=== PATIENT | male | born 1960 | race Caucasian/White ===

== ENCOUNTER 2016-10-04 11:55 | Inpatient (IN) | payer MEDICARE, OTHER ==
[2016-10-04 12:10] VITALS: BMI 31.6
[2016-10-04] MEDS ORDERED: HYDROcodone/Acetaminophen 5/325 mg Tablet PO PRN (15:30)
[2016-10-04] MEDS ORDERED: Ondansetron ODT 4 MG TAB PO PRN (15:30)
[2016-10-04] MEDS ORDERED: Docusate 100 MG CAP PO PRN (15:33)
[2016-10-04] MEDS ORDERED: cefTRIAXone\\ROCEPHIN 2 GM VIAL IVPB SCH (15:45)
[2016-10-04] MEDS ORDERED: Sodium Chloride 0.9% 10 ML ONE (16:12)
[2016-10-04] MEDS: cefTRIAXone\\ROCEPHIN 2 GM in Sodium Chloride 0.9% 100 ML IVPB SCH (16:21)
[2016-10-04] MEDS: HYDROcodone/Acetaminophen 10/325 mg Tablet PO PRN (16:26)
[2016-10-04] MEDS: Clindamycin 150 MG CAP PO SCH ×2 (17:55→23:24)
[2016-10-04] MEDS ORDERED: Dextrose 5% in Water 1,000 ML IV PRN (21:03)
[2016-10-04] MEDS ORDERED: HumaLOG 300 UNITS/3 ML VIAL SC PRN ×2 (21:03)
[2016-10-04] MEDS ORDERED: Dextrose 50% Abboject 50 ML SYRINGE IVP PRN (21:03)
[2016-10-04] MEDS: metroNIDAZOLE 500 MG TAB PO SCH (21:15)
[2016-10-04] MEDS: Mirtazapine 15 MG TAB PO SCH (21:15)
[2016-10-05] MEDS: Clindamycin 150 MG CAP PO SCH ×4 (05:45→23:14)
[2016-10-05 06:04] LABS: Anion Gap 14 mmol/L (10-20); BUN (Urea Nitrogen) 12 mg/dL (8.4-25.7); Calc. Creatinine Clearance 156 mL/min (70-130); Calcium 8.9 mg/dL (7.8-10.44); Carbon Dioxide 19 mmol/L (22-29); Chloride 109 mmol/L (98-107); Estimated GFR-MDRD Greater than 90; Glucose 128 mg/dL (70-105); Potassium 4.1 mmol/L (3.5-5.1); Sodium 138 mmol/L (136-145)
[2016-10-05 06:28] LABS: Hemoglobin 12.9 g/dL (14.0-18.0); Mean Corpuscular Volume 93.9 fl (80.0-94.0); Mean Platelet Volume 8.6 fL (7.4-10.4); Platelet Count 249 thou/uL (130-400); RBC Distribution Width 12.9 % (11.5-14.5); Red Blood Cell (RBC) Count 4.31 mill/uL (4.70-6.10); White Blood Cell (WBC) Count 9.6 thou/uL (4.8-10.8)
[2016-10-05 06:29] LABS: Eosinophils 2 % (0-10); Lymphocytes 30 % (21-51); MDiff Complete? YES; Monocytes 11 % (0-10); Neutrophil 57 % (42-75); PLT Morphology Comment Appears Adequate
[2016-10-05] MEDS: Saccharomyces boulardii 250 MG CAP PO SCH (09:41)
[2016-10-05] MEDS: Tamsulosin HCl 0.4 MG CAP PO SCH (09:42)
[2016-10-05] MEDS: Fluconazole 100 MG TAB PO SCH (09:42)
[2016-10-05] MEDS: metroNIDAZOLE 500 MG TAB PO SCH ×3 (09:42→21:03)
[2016-10-05] MEDS: FLUoxetine HCl 20 MG CAP PO SCH (09:52)
[2016-10-05] MEDS: cefTRIAXone\\ROCEPHIN 2 GM in Sodium Chloride 0.9% 100 ML IVPB SCH (15:53)
[2016-10-05] MEDS: HYDROcodone/Acetaminophen 10/325 mg Tablet PO PRN ×2 (16:51→21:03)
[2016-10-05] MEDS: Mirtazapine 15 MG TAB PO SCH (21:02)
[2016-10-06] MEDS: Clindamycin 150 MG CAP PO SCH ×4 (05:39→23:54)
[2016-10-06] MEDS: Saccharomyces boulardii 250 MG CAP PO SCH (08:14)
[2016-10-06] MEDS: Fluconazole 100 MG TAB PO SCH (08:14)
[2016-10-06] MEDS: Tamsulosin HCl 0.4 MG CAP PO SCH (08:14)
[2016-10-06] MEDS: FLUoxetine HCl 20 MG CAP PO SCH (08:14)
[2016-10-06] MEDS: metroNIDAZOLE 500 MG TAB PO SCH ×3 (08:15→20:38)
[2016-10-06] MEDS: HYDROcodone/Acetaminophen 10/325 mg Tablet PO PRN ×2 (11:28→17:52)
[2016-10-06] MEDS: cefTRIAXone\\ROCEPHIN 2 GM in Sodium Chloride 0.9% 100 ML IVPB SCH (17:07)
[2016-10-06] MEDS: lamoTRIgine 25 MG TAB PO SCH (20:38)
[2016-10-06] MEDS: Mirtazapine 15 MG TAB PO SCH (20:38)
[2016-10-07] MEDS: Clindamycin 150 MG CAP PO SCH ×4 (05:46→23:39)
[2016-10-07] MEDS: HYDROcodone/Acetaminophen 10/325 mg Tablet PO PRN ×4 (06:39→21:36)
[2016-10-07] MEDS: Tamsulosin HCl 0.4 MG CAP PO SCH (09:30)
[2016-10-07] MEDS: lamoTRIgine 25 MG TAB PO SCH ×2 (09:30→20:12)
[2016-10-07] MEDS: Fluconazole 100 MG TAB PO SCH (09:30)
[2016-10-07] MEDS: metroNIDAZOLE 500 MG TAB PO SCH ×3 (09:30→20:12)
[2016-10-07] MEDS: Nicotine 21 MG PATCH TD SCH (09:30)
[2016-10-07] MEDS: FLUoxetine HCl 20 MG CAP PO SCH (09:30)
[2016-10-07] MEDS: Saccharomyces boulardii 250 MG CAP PO SCH (09:30)
[2016-10-07] MEDS: cefTRIAXone\\ROCEPHIN 2 GM in Sodium Chloride 0.9% 100 ML IVPB SCH (15:45)
[2016-10-07] MEDS: Mirtazapine 15 MG TAB PO SCH (20:12)
[2016-10-08] MEDS: Clindamycin 150 MG CAP PO SCH ×3 (05:37→17:00)
[2016-10-08] MEDS: HYDROcodone/Acetaminophen 10/325 mg Tablet PO PRN ×3 (08:05→21:20)
[2016-10-08] MEDS: lamoTRIgine 25 MG TAB PO SCH ×2 (08:47→21:18)
[2016-10-08] MEDS: metroNIDAZOLE 500 MG TAB PO SCH ×3 (08:47→21:18)
[2016-10-08] MEDS: Nicotine 21 MG PATCH TD SCH (08:47)
[2016-10-08] MEDS: FLUoxetine HCl 20 MG CAP PO SCH (08:47)
[2016-10-08] MEDS: Saccharomyces boulardii 250 MG CAP PO SCH (08:48)
[2016-10-08] MEDS: Tamsulosin HCl 0.4 MG CAP PO SCH (08:55)
[2016-10-08] MEDS: Fluconazole 100 MG TAB PO SCH (09:51)
[2016-10-08 11:48] LABS: ALT (SGPT) 24 U/L (8-55); AST (SGOT) 17 U/L (5-34); Alkaline Phosphatase 126 U/L (40-150); Anion Gap 15 mmol/L (10-20); BUN (Urea Nitrogen) 16 mg/dL (8.4-25.7); Bilirubin, Total 0.3 mg/dL (0.2-1.2); Calc. Creatinine Clearance 153 mL/min (70-130); Calcium 9.8 mg/dL (7.8-10.44); Carbon Dioxide 23 mmol/L (22-29); Chloride 103 mmol/L (98-107); Estimated GFR-MDRD Greater than 90; Globulin 2.9 g/dL (2.4-3.5); Glucose 101 mg/dL (70-105); Potassium 4.4 mmol/L (3.5-5.1); Protein, Total 6.9 g/dL (6.0-8.3); Sodium 137 mmol/L (136-145)
[2016-10-08 11:49] LABS: #Basophils 0.3 thou/uL (0.0-0.2); #Eosinphils 0.6 thou/uL (0.0-0.7); #Lymphocytes 2.8 thou/uL (1.20-3.40); #Monocytes 1.4 thou/uL (0.11-0.59); #Neutrophils 8.3 thou/uL (1.40-6.50); %Basophils 1.9 % (0.0-1.0); %Eosinophils 4.6 % (0.0-10.0); %Lymphocytes 20.8 % (21.0-51.0); %Monocytes 10.5 % (0.0-10.0); %Neutrophils 62.2 % (42.0-75.0); Hemoglobin 14.6 g/dL (14.0-18.0); Mean Corpuscular HGB CONC 32.9 g/dL (32.0-36.0); Mean Corpuscular Hemoglobin 29.8 pg (27.0-31.0); Mean Corpuscular Volume 90.7 fl (80.0-94.0); Mean Platelet Volume 8.6 fL (7.4-10.4); Platelet Count 320 thou/uL (130-400); RBC Distribution Width 12.2 % (11.5-14.5); Red Blood Cell (RBC) Count 4.89 mill/uL (4.70-6.10); White Blood Cell (WBC) Count 13.4 thou/uL (4.8-10.8)
[2016-10-08] MEDS: cefTRIAXone\\ROCEPHIN 2 GM in Sodium Chloride 0.9% 100 ML IVPB SCH (15:54)
[2016-10-08] MEDS: Sodium Chloride 0.9% 20 ML ONE (15:55)
[2016-10-08] MEDS: Mirtazapine 15 MG TAB PO SCH (21:18)
[2016-10-09] MEDS: Clindamycin 150 MG CAP PO SCH ×5 (00:45→22:58)
[2016-10-09] MEDS: FLUoxetine HCl 20 MG CAP PO SCH (08:53)
[2016-10-09] MEDS: Fluconazole 100 MG TAB PO SCH (08:54)
[2016-10-09] MEDS: lamoTRIgine 25 MG TAB PO SCH ×2 (08:55→20:00)
[2016-10-09] MEDS: metroNIDAZOLE 500 MG TAB PO SCH ×3 (08:55→19:59)
[2016-10-09] MEDS: Saccharomyces boulardii 250 MG CAP PO SCH (08:56)
[2016-10-09] MEDS: Nicotine 21 MG PATCH TD SCH (08:56)
[2016-10-09] MEDS: Tamsulosin HCl 0.4 MG CAP PO SCH (08:56)
[2016-10-09] MEDS: Acetaminophen/Codeine 30-300mg Tablet PO PRN (08:56)
[2016-10-09] MEDS: Sodium Chloride 0.9% 20 ML ONE (16:18)
[2016-10-09] MEDS: cefTRIAXone\\ROCEPHIN 2 GM in Sodium Chloride 0.9% 100 ML IVPB SCH (16:18)
[2016-10-09] MEDS: HYDROcodone/Acetaminophen 10/325 mg Tablet PO PRN (19:59)
[2016-10-09] MEDS: Mirtazapine 15 MG TAB PO SCH (19:59)
[2016-10-10] MEDS: Clindamycin 150 MG CAP PO SCH ×4 (05:10→23:05)
[2016-10-10] MEDS: lamoTRIgine 25 MG TAB PO SCH ×2 (08:16→20:09)
[2016-10-10] MEDS: Fluconazole 100 MG TAB PO SCH (08:16)
[2016-10-10] MEDS: FLUoxetine HCl 20 MG CAP PO SCH (08:16)
[2016-10-10] MEDS: Saccharomyces boulardii 250 MG CAP PO SCH (08:16)
[2016-10-10] MEDS: metroNIDAZOLE 500 MG TAB PO SCH ×3 (08:16→20:09)
[2016-10-10] MEDS: Tamsulosin HCl 0.4 MG CAP PO SCH (08:16)
[2016-10-10] MEDS: Nicotine 21 MG PATCH TD SCH (08:17)
[2016-10-10] MEDS: HYDROcodone/Acetaminophen 10/325 mg Tablet PO PRN ×2 (08:19→18:05)
[2016-10-10 11:42] LABS: #Basophils 0.2 thou/uL (0.0-0.2); #Eosinphils 0.5 thou/uL (0.0-0.7); #Lymphocytes 2.5 thou/uL (1.20-3.40); #Monocytes 0.8 thou/uL (0.11-0.59); %Basophils 1.7 % (0.0-1.0); %Eosinophils 4.3 % (0.0-10.0); %Lymphocytes 20.9 % (21.0-51.0); %Monocytes 6.3 % (0.0-10.0); %Neutrophils 66.8 % (42.0-75.0); Hemoglobin 13.5 g/dL (14.0-18.0); Mean Corpuscular HGB CONC 32.4 g/dL (32.0-36.0); Mean Corpuscular Hemoglobin 29.3 pg (27.0-31.0); Mean Corpuscular Volume 90.5 fl (80.0-94.0); Mean Platelet Volume 8.2 fL (7.4-10.4); Platelet Count 264 thou/uL (130-400); RBC Distribution Width 12.1 % (11.5-14.5); Red Blood Cell (RBC) Count 4.61 mill/uL (4.70-6.10); White Blood Cell (WBC) Count 11.9 thou/uL (4.8-10.8)
[2016-10-10] MEDS: cefTRIAXone\\ROCEPHIN 2 GM in Sodium Chloride 0.9% 100 ML IVPB SCH (15:25)
[2016-10-10] MEDS: Mirtazapine 15 MG TAB PO SCH (20:10)
[2016-10-11] MEDS: Clindamycin 150 MG CAP PO SCH ×4 (06:05→23:02)
[2016-10-11] MEDS: Fluconazole 100 MG TAB PO SCH (07:53)
[2016-10-11] MEDS: metroNIDAZOLE 500 MG TAB PO SCH ×3 (07:54→20:21)
[2016-10-11] MEDS: FLUoxetine HCl 20 MG CAP PO SCH (07:54)
[2016-10-11] MEDS: Tamsulosin HCl 0.4 MG CAP PO SCH (07:54)
[2016-10-11] MEDS: Saccharomyces boulardii 250 MG CAP PO SCH (07:54)
[2016-10-11] MEDS: lamoTRIgine 25 MG TAB PO SCH ×2 (07:55→20:21)
[2016-10-11] MEDS: Nicotine 21 MG PATCH TD SCH (07:55)
[2016-10-11] MEDS: HYDROcodone/Acetaminophen 10/325 mg Tablet PO PRN ×2 (08:00→20:14)
[2016-10-11] MEDS ORDERED: Sodium Chloride 0.9% 20 ML ONE (14:09)
[2016-10-11] MEDS: cefTRIAXone\\ROCEPHIN 2 GM in Sodium Chloride 0.9% 100 ML IVPB SCH (15:00)
[2016-10-11] MEDS: Mirtazapine 15 MG TAB PO SCH (20:21)
[2016-10-12] MEDS: HYDROcodone/Acetaminophen 10/325 mg Tablet PO PRN ×3 (05:23→19:54)
[2016-10-12] MEDS: Clindamycin 150 MG CAP PO SCH ×3 (05:23→17:23)
[2016-10-12] MEDS: lamoTRIgine 25 MG TAB PO SCH ×2 (08:03→20:51)
[2016-10-12] MEDS: Saccharomyces boulardii 250 MG CAP PO SCH (08:03)
[2016-10-12] MEDS: Fluconazole 100 MG TAB PO SCH (08:03)
[2016-10-12] MEDS: metroNIDAZOLE 500 MG TAB PO SCH ×3 (08:03→20:50)
[2016-10-12] MEDS: Tamsulosin HCl 0.4 MG CAP PO SCH (08:03)
[2016-10-12] MEDS: FLUoxetine HCl 20 MG CAP PO SCH (08:04)
[2016-10-12] MEDS: Nicotine 21 MG PATCH TD SCH (08:04)
[2016-10-12] MEDS ORDERED: Sodium Chloride 0.9% 20 ML ONE (15:18)
[2016-10-12] MEDS: cefTRIAXone\\ROCEPHIN 2 GM in Sodium Chloride 0.9% 100 ML IVPB SCH (15:20)
[2016-10-12] MEDS: Mirtazapine 15 MG TAB PO SCH (20:51)
[2016-10-13] MEDS: Clindamycin 150 MG CAP PO SCH ×5 (00:05→23:43)
[2016-10-13] MEDS: Acetaminophen/Codeine 30-300mg Tablet PO PRN (07:18)
[2016-10-13] MEDS: FLUoxetine HCl 20 MG CAP PO SCH (09:27)
[2016-10-13] MEDS: Saccharomyces boulardii 250 MG CAP PO SCH (09:28)
[2016-10-13] MEDS: Tamsulosin HCl 0.4 MG CAP PO SCH (09:28)
[2016-10-13] MEDS: Fluconazole 100 MG TAB PO SCH (09:28)
[2016-10-13] MEDS: metroNIDAZOLE 500 MG TAB PO SCH ×3 (09:28→21:02)
[2016-10-13] MEDS: lamoTRIgine 25 MG TAB PO SCH ×2 (09:28→21:02)
[2016-10-13] MEDS: Nicotine 21 MG PATCH TD SCH (09:29)
[2016-10-13] MEDS: HYDROcodone/Acetaminophen 10/325 mg Tablet PO PRN ×2 (14:13→21:02)
[2016-10-13] MEDS: Sodium Chloride 0.9% 20 ML ONE (16:00)
[2016-10-13] MEDS: cefTRIAXone\\ROCEPHIN 2 GM in Sodium Chloride 0.9% 100 ML IVPB SCH (16:00)
[2016-10-13] MEDS: Mirtazapine 15 MG TAB PO SCH (21:02)
[2016-10-14] MEDS: Clindamycin 150 MG CAP PO SCH ×4 (06:29→23:40)
[2016-10-14] MEDS: Fluconazole 100 MG TAB PO SCH (08:44)
[2016-10-14] MEDS: lamoTRIgine 25 MG TAB PO SCH ×2 (08:45→20:27)
[2016-10-14] MEDS: Saccharomyces boulardii 250 MG CAP PO SCH (08:45)
[2016-10-14] MEDS: FLUoxetine HCl 20 MG CAP PO SCH (08:45)
[2016-10-14] MEDS: Tamsulosin HCl 0.4 MG CAP PO SCH (08:45)
[2016-10-14] MEDS: Nicotine 21 MG PATCH TD SCH (08:49)
[2016-10-14] MEDS: metroNIDAZOLE 500 MG TAB PO SCH ×3 (08:53→20:28)
[2016-10-14] MEDS ORDERED: Sodium Chloride 0.9% 20 ML ONE (14:04)
[2016-10-14] MEDS: HYDROcodone/Acetaminophen 10/325 mg Tablet PO PRN ×2 (14:07→20:28)
[2016-10-14] MEDS: cefTRIAXone\\ROCEPHIN 2 GM in Sodium Chloride 0.9% 100 ML IVPB SCH (16:13)
[2016-10-14] MEDS: Sodium Chloride 0.9% 20 ML ONE (16:18)
[2016-10-14] MEDS: Mirtazapine 15 MG TAB PO SCH (20:27)
[2016-10-15] MEDS: Clindamycin 150 MG CAP PO SCH ×4 (05:38→23:02)
[2016-10-15] MEDS: HYDROcodone/Acetaminophen 10/325 mg Tablet PO PRN ×4 (06:14→23:02)
[2016-10-15] MEDS: Nicotine 21 MG PATCH TD SCH (09:24)
[2016-10-15] MEDS: FLUoxetine HCl 20 MG CAP PO SCH (09:25)
[2016-10-15] MEDS: Tamsulosin HCl 0.4 MG CAP PO SCH (09:25)
[2016-10-15] MEDS: Saccharomyces boulardii 250 MG CAP PO SCH (09:25)
[2016-10-15] MEDS: Fluconazole 100 MG TAB PO SCH (09:27)
[2016-10-15] MEDS: metroNIDAZOLE 500 MG TAB PO SCH ×3 (09:29→21:31)
[2016-10-15] MEDS: lamoTRIgine 25 MG TAB PO SCH ×2 (09:29→21:31)
[2016-10-15] MEDS: cefTRIAXone\\ROCEPHIN 2 GM in Sodium Chloride 0.9% 100 ML IVPB SCH (16:16)
[2016-10-15] MEDS: Mirtazapine 15 MG TAB PO SCH (21:31)
[2016-10-16] MEDS: Clindamycin 150 MG CAP PO SCH ×4 (05:26→22:42)
[2016-10-16] MEDS: Fluconazole 100 MG TAB PO SCH (08:19)
[2016-10-16] MEDS: lamoTRIgine 25 MG TAB PO SCH ×2 (08:20→21:15)
[2016-10-16] MEDS: FLUoxetine HCl 20 MG CAP PO SCH (08:20)
[2016-10-16] MEDS: Saccharomyces boulardii 250 MG CAP PO SCH (08:20)
[2016-10-16] MEDS: Tamsulosin HCl 0.4 MG CAP PO SCH (08:20)
[2016-10-16] MEDS: metroNIDAZOLE 500 MG TAB PO SCH ×3 (08:20→21:15)
[2016-10-16] MEDS: Nicotine 21 MG PATCH TD SCH (08:23)
[2016-10-16] MEDS: HYDROcodone/Acetaminophen 10/325 mg Tablet PO PRN ×3 (11:07→22:42)
[2016-10-16] MEDS: cefTRIAXone\\ROCEPHIN 2 GM in Sodium Chloride 0.9% 100 ML IVPB SCH (15:37)
[2016-10-16] MEDS ORDERED: Sodium Chloride 0.9% 10 ML ONE (16:17)
[2016-10-16] MEDS: Mirtazapine 15 MG TAB PO SCH (21:15)
[2016-10-17] MEDS: FLUoxetine HCl 20 MG CAP PO SCH (09:30)
[2016-10-17] MEDS: Tamsulosin HCl 0.4 MG CAP PO SCH (09:30)
[2016-10-17] MEDS: HYDROcodone/Acetaminophen 10/325 mg Tablet PO PRN ×2 (09:30→20:21)
[2016-10-17] MEDS: metroNIDAZOLE 500 MG TAB PO SCH ×3 (09:30→20:20)
[2016-10-17] MEDS: Saccharomyces boulardii 250 MG CAP PO SCH (09:30)
[2016-10-17] MEDS: lamoTRIgine 25 MG TAB PO SCH ×2 (09:30→20:20)
[2016-10-17] MEDS: Fluconazole 100 MG TAB PO SCH (09:30)
[2016-10-17] MEDS: Nicotine 21 MG PATCH TD SCH (10:57)
[2016-10-17] MEDS: Clindamycin 150 MG CAP PO SCH ×3 (13:51→23:54)
[2016-10-17] MEDS: cefTRIAXone\\ROCEPHIN 2 GM in Sodium Chloride 0.9% 100 ML IVPB SCH (15:36)
[2016-10-17] MEDS: Mirtazapine 15 MG TAB PO SCH (20:20)
[2016-10-18] MEDS: Clindamycin 150 MG CAP PO SCH ×3 (05:39→17:05)
[2016-10-18] MEDS: HYDROcodone/Acetaminophen 10/325 mg Tablet PO PRN ×2 (07:40→15:35)
[2016-10-18] MEDS: FLUoxetine HCl 20 MG CAP PO SCH (08:54)
[2016-10-18] MEDS: Fluconazole 100 MG TAB PO SCH (08:54)
[2016-10-18] MEDS: lamoTRIgine 25 MG TAB PO SCH ×2 (08:55→20:59)
[2016-10-18] MEDS: Nicotine 21 MG PATCH TD SCH (08:55)
[2016-10-18] MEDS: metroNIDAZOLE 500 MG TAB PO SCH ×3 (08:55→20:59)
[2016-10-18] MEDS: Saccharomyces boulardii 250 MG CAP PO SCH (08:55)
[2016-10-18] MEDS: Tamsulosin HCl 0.4 MG CAP PO SCH (08:56)
[2016-10-18 11:49] LABS: #Basophils 0.2 thou/uL (0.0-0.2); #Eosinphils 0.4 thou/uL (0.0-0.7); #Lymphocytes 1.9 thou/uL (1.20-3.40); #Monocytes 0.7 thou/uL (0.11-0.59); #Neutrophils 6.9 thou/uL (1.40-6.50); %Lymphocytes 18.8 % (21.0-51.0); %Monocytes 6.6 % (0.0-10.0); %Neutrophils 68.6 % (42.0-75.0); Hemoglobin 13.1 g/dL (14.0-18.0); Mean Corpuscular HGB CONC 33.2 g/dL (32.0-36.0); Mean Corpuscular Volume 90.2 fl (80.0-94.0); Mean Platelet Volume 8.9 fL (7.4-10.4); Platelet Count 249 thou/uL (130-400); RBC Distribution Width 12.4 % (11.5-14.5); Red Blood Cell (RBC) Count 4.37 mill/uL (4.70-6.10); White Blood Cell (WBC) Count 10.1 thou/uL (4.8-10.8)
[2016-10-18 12:04] LABS: ALT (SGPT) 20 U/L (8-55); AST (SGOT) 20 U/L (5-34); Albumin 3.6 g/dL (3.5-5.0); Alkaline Phosphatase 99 U/L (40-150); Anion Gap 13 mmol/L (10-20); BUN (Urea Nitrogen) 14 mg/dL (8.4-25.7); Bilirubin, Total 0.2 mg/dL (0.2-1.2); CRP (Inflammatory) 1.62 mg/dL (= or < 0.5); Calc. Creatinine Clearance 162 mL/min (70-130); Calcium 9.1 mg/dL (7.8-10.44); Carbon Dioxide 24 mmol/L (22-29); Chloride 106 mmol/L (98-107); Estimated GFR-MDRD Greater than 90; Globulin 2.4 g/dL (2.4-3.5); Glucose 122 mg/dL (70-105); Potassium 4.1 mmol/L (3.5-5.1); Sodium 139 mmol/L (136-145)
[2016-10-18] MEDS ORDERED: Sodium Chloride 0.9% 10 ML ONE (15:13)
[2016-10-18] MEDS: cefTRIAXone\\ROCEPHIN 2 GM in Sodium Chloride 0.9% 100 ML IVPB SCH (15:36)
[2016-10-18] MEDS: Mirtazapine 15 MG TAB PO SCH (20:59)
[2016-10-19] MEDS: Clindamycin 150 MG CAP PO SCH ×5 (00:01→16:59)
[2016-10-19] MEDS: FLUoxetine HCl 20 MG CAP PO SCH (08:46)
[2016-10-19] MEDS: Saccharomyces boulardii 250 MG CAP PO SCH (08:46)
[2016-10-19] MEDS: Tamsulosin HCl 0.4 MG CAP PO SCH (08:46)
[2016-10-19] MEDS: lamoTRIgine 25 MG TAB PO SCH ×2 (08:46→21:15)
[2016-10-19] MEDS: metroNIDAZOLE 500 MG TAB PO SCH ×3 (08:46→21:16)
[2016-10-19] MEDS: Fluconazole 100 MG TAB PO SCH (08:47)
[2016-10-19] MEDS: Nicotine 21 MG PATCH TD SCH (08:49)
[2016-10-19] MEDS: cefTRIAXone\\ROCEPHIN 2 GM in Sodium Chloride 0.9% 100 ML IVPB SCH (15:42)
[2016-10-19] MEDS: Mirtazapine 15 MG TAB PO SCH (21:15)
[2016-10-19] MEDS: HYDROcodone/Acetaminophen 10/325 mg Tablet PO PRN (21:16)
[2016-10-20] MEDS: Clindamycin 150 MG CAP PO SCH ×5 (00:21→23:18)
[2016-10-20] MEDS: Nicotine 21 MG PATCH TD SCH (08:48)
[2016-10-20] MEDS: metroNIDAZOLE 500 MG TAB PO SCH ×3 (08:54→21:27)
[2016-10-20] MEDS: Saccharomyces boulardii 250 MG CAP PO SCH (08:54)
[2016-10-20] MEDS: lamoTRIgine 25 MG TAB PO SCH ×2 (08:54→21:27)
[2016-10-20] MEDS: Fluconazole 100 MG TAB PO SCH (08:55)
[2016-10-20] MEDS: Tamsulosin HCl 0.4 MG CAP PO SCH (08:57)
[2016-10-20] MEDS: FLUoxetine HCl 20 MG CAP PO SCH (08:58)
[2016-10-20] MEDS: cefTRIAXone\\ROCEPHIN 2 GM in Sodium Chloride 0.9% 100 ML IVPB SCH (15:21)
[2016-10-20] MEDS: HYDROcodone/Acetaminophen 10/325 mg Tablet PO PRN (18:22)
[2016-10-20] MEDS: Mirtazapine 15 MG TAB PO SCH (21:27)
[2016-10-21] MEDS: Clindamycin 150 MG CAP PO SCH ×3 (05:36→17:28)
[2016-10-21] MEDS: metroNIDAZOLE 500 MG TAB PO SCH ×3 (09:05→21:26)
[2016-10-21] MEDS: lamoTRIgine 25 MG TAB PO SCH ×2 (09:05→21:26)
[2016-10-21] MEDS: Fluconazole 100 MG TAB PO SCH (09:06)
[2016-10-21] MEDS: FLUoxetine HCl 20 MG CAP PO SCH (09:06)
[2016-10-21] MEDS: Tamsulosin HCl 0.4 MG CAP PO SCH (09:06)
[2016-10-21] MEDS: Saccharomyces boulardii 250 MG CAP PO SCH (09:06)
[2016-10-21] MEDS: Nicotine 21 MG PATCH TD SCH (09:07)
[2016-10-21] MEDS: HYDROcodone/Acetaminophen 10/325 mg Tablet PO PRN ×2 (11:57→21:26)
[2016-10-21] MEDS: cefTRIAXone\\ROCEPHIN 2 GM in Sodium Chloride 0.9% 100 ML IVPB SCH (15:42)
[2016-10-21] MEDS: Mirtazapine 15 MG TAB PO SCH (21:26)
[2016-10-22] MEDS: Clindamycin 150 MG CAP PO SCH ×4 (00:11→17:05)
[2016-10-22 08:42] VITALS: BP 148/65; TEMP 95.9
[2016-10-22] MEDS: Fluconazole 100 MG TAB PO SCH (08:53)
[2016-10-22] MEDS: metroNIDAZOLE 500 MG TAB PO SCH ×2 (08:54→15:09)
[2016-10-22] MEDS: FLUoxetine HCl 20 MG CAP PO SCH (08:54)
[2016-10-22] MEDS: lamoTRIgine 25 MG TAB PO SCH (08:54)
[2016-10-22] MEDS: Saccharomyces boulardii 250 MG CAP PO SCH (08:55)
[2016-10-22] MEDS: Tamsulosin HCl 0.4 MG CAP PO SCH (08:55)
[2016-10-22] MEDS: Nicotine 21 MG PATCH TD SCH (08:55)
[2016-10-22] MEDS: HYDROcodone/Acetaminophen 10/325 mg Tablet PO PRN (11:54)
[2016-10-22] MEDS: cefTRIAXone\\ROCEPHIN 2 GM in Sodium Chloride 0.9% 100 ML IVPB SCH (15:09)
--- NOTE | 2016-10-24 07:22 | PQF ---
EVELIA ESPINOZA DARRYL [id number] [facility] ACUTE-[id number] CLINICAL DOCUMENTATION CLARIFICATION FORM: POST DISCHARGE PLEASE FAX RESPONSE BACK TO [phone] Addendum to original discharge summary date: ____ Late entry note date: 30 Oct 2016 DATE: 10/24/2016 ATTN: DR. MARVIN The following CLINICAL INDICATORS - SIGNS / SYMPTOMS are present in the medical record: Hand written operative report on 10/17/2016 states wound debridement and wound closure RISKS: Tenosynovitis of rt wrist Noncompliance to wound care Nicotine abuse TREATMENTS: Antibiotics Wound care with dressing changes Please provide a response below if a more specific term indicating a diagnosis and/or acuity level for this condition can be identified. Please exercise your independent, professional judgment in responding to the clarification form. Clinical indicators are provided at the top of this form for your review. . For continuity of documentation, please document condition throughout progress notes and discharge summary. Thank you. [ x] Excisional Debridement: (Definition) Excisional debridement is the surgical removal or cutting away of devitalized tissue, necrosis, or slough. Excisional debridement can be performed in the operating room, emergency room, or at the patient's bedside. ([facility], Fourth 1987) [ ] Excised [ ] Removed [ ] Cut away [ ] Other: Depth / layer: (deepest layer of debridement): [ ] Skin/SubQ[ ] Fascia [ x] Muscle [ ] Bone (please specify): / x x Instruments used: [x ] Scissors [ x ] Scalpel[ ] Curette[ x] Tweezers/ forceps [ ] Soft tissue clipper[ ] Other: x [ ] Non-excisional Debridement: (Removal by flushing, brushing, or washing) ( Definition) Nonexcisional debridement is the non-operative brushing, irrigating , scrubbing, or washing of devitalized tissue, necrosis, or slough. Nonexcisional debridement includes snipping of tissue followed by Lopez tank therapy. Nonexcisional debridement may be performed by a nurse, therapist, or physician. ([facility], Fourth 1987) [ ] Incision and Drainage only (No Debridement): Depth:[ ] Skin & Sub Q only[ ] Into soft tissue [ ] Escharectomy [ ] Does not apply to this patient [ ] Unable to determine [ ] Other diagnosis: daniele marvin 30 October 2016 Physician/Provider Signature Date Time (This form is maintained as a part of the permanent medical record) 2014 [employer]. All Rights Reserved [email or web address]
== END 2016-10-22 17:45 | disposition home or self-care (01) | DRG 513 ==
LOC: NAV ACUTE 11:55 → UNDOADMIN 11:55
PROVIDERS: ADMIT Internal Medicine; ATTEND Internal Medicine
PROC: 0JBJ0ZZ Excision of Right Hand Subcutaneous Tissue and Fascia, Open Approach (ICD-10-PCS; principal; 2016-10-17)
DX: M65.131 Other infective (teno)synovitis, right wrist (principal); I69.354 Hemiplegia and hemiparesis following cerebral infarction affecting left non-dominant side; I10 Essential (primary) hypertension; Z91.19 Patient's noncompliance with other medical treatment and regimen; N40.0 Benign prostatic hyperplasia without lower urinary tract symptoms; E11.9 Type 2 diabetes mellitus without complications; Z79.84 Long term (current) use of oral hypoglycemic drugs; E66.9 Obesity, unspecified; Z68.31 Body mass index [BMI] 31.0-31.9, adult; F17.210 Nicotine dependence, cigarettes, uncomplicated; F31.9 Bipolar disorder, unspecified; Z79.2 Long term (current) use of antibiotics
CPT/HCPCS: 36416; 80048; 80053; 85007; 85025; 85027; 86140; 97602; A4216; C1751; G8978-GP-CK; G8979-GP-CJ; J0696; J7050

== ENCOUNTER 2017-02-17 08:50 | Emergency (ER) | payer MEDICARE, MEDICAID | END 2017-02-17 09:17 | disposition home or self-care (01) | LOC: NAV ERS 08:50 | DX: S61.501D Unspecified open wound of right wrist, subsequent encounter (principal); E78.5 Hyperlipidemia, unspecified; I10 Essential (primary) hypertension; F41.9 Anxiety disorder, unspecified; F17.210 Nicotine dependence, cigarettes, uncomplicated; F31.9 Bipolar disorder, unspecified; Z86.73 Personal history of transient ischemic attack (TIA), and cerebral infarction without residual deficits; Z79.84 Long term (current) use of oral hypoglycemic drugs; Z79.899 Other long term (current) drug therapy; X58.XXXD Exposure to other specified factors, subsequent encounter | CPT/HCPCS: 99283 ==

== ENCOUNTER 2020-11-21 10:49 | Outpatient (CLI) | payer MEDICARE | END 2020-11-21 10:50 | disposition home or self-care (01) | LOC: NAV RAD 10:49 | PROVIDERS: ATTEND Family Medicine | DX: M47.22 Other spondylosis with radiculopathy, cervical region (principal); I65.29 Occlusion and stenosis of unspecified carotid artery | CPT/HCPCS: 72040 ==